=== PATIENT | female | born 1945 | race Two or more races ===

== ENCOUNTER 2018-10-30 16:00 | Emergency (ER) | payer MEDICARE, MEDICAID ==
[~2018-10-30] VITALS: Ht 147.3 cm; Wt 52.2 kg
[2018-10-30 16:00] VITALS: BP 161/82
--- NOTE | 2018-10-30 16:05 | NUR ---
ED Nurse Note: BROUGHT IN BY [id number] FROM HOME DUE TO PALPITATIONS, HEADACHE, AND FEELING ANXIOUS FOR PAST ONE HOUR. PT STATES THAT SHE RECENTLY GOT CARDIAC CHECK UP AND WAS TOLD THAT EVERYTHING WAS NORMAL EXCEPT TACHYCARDIA. DENIES SOB NOR CP AT THIS TIME. PT REPORTS TAKING BLOOD THINNER BUT DOES NOT REMEMBER THE NAME AND DOSE.
[2018-10-30] MEDS ORDERED: dilTIAZem HCl 25mg/5ml Inj IVP ONE ×2 (16:15→17:30)
--- NOTE | 2018-10-30 16:20 | NUR ---
ED Nurse Note: NOTIFIED ERMD THAT PT'S HR IS IN BTWEEN 150-170s IRREGULAR. RECEIVED ORDER FOR CARTIZEM 10MG/2ML, MEDS GIVEN PROTOCOL. PT'S HR IS NOW IN BETWEEN 90-110s. NO S/S OF DISTRESS.
[2018-10-30 16:27] LABS: BASOPHILS % (AUTO) 1.3 % (0.0-2.0); HEMATOCRIT 44.2 % (37.0-47.0); MEAN CORPUSCULAR VOLUME 94 FL (80-99); MONOCYTES % (AUTO) 5.6 % (1.0-10.0); PLATELET COUNT 280 K/UL (150-450); RED CELL DISTRIBUTION WIDTH 11.4 % (11.6-14.8); WHITE BLOOD COUNT 10.9 K/UL (4.8-10.8)
[2018-10-30 16:40] LABS: INR 0.9 (0.9-1.1)
[2018-10-30 16:45] LABS: ANION GAP 15 mmol/L (5-15); BLOOD UREA NITROGEN 17 mg/dL (7-18); CALCIUM 10.8 MG/DL (8.5-10.1); CARBON DIOXIDE 24 MMOL/L (21-32); CHLORIDE 98 MMOL/L (98-107); CREATININE 1.1 MG/DL (0.55-1.30); POTASSIUM 3.3 MMOL/L (3.5-5.1); SODIUM 137 MMOL/L (136-145)
[2018-10-30 16:48] LABS: APPEARANCE,URINE CLEAR; BILIRUBIN, URINE NEGATIVE (NEGATIVE); COLOR,URINE PALE YELLOW; GLUCOSE, URINE (UA) NEGATIVE (NEGATIVE); KETONES,URINE 2+ (NEGATIVE); LEUKOCYTE ESTERASE ,URINE 2+ (NEGATIVE); NITRITE,URINE NEGATIVE (NEGATIVE); PH,URINE 8 (4.5-8.0); PROTEIN,URINE 2+ (NEGATIVE); UROBILINOGEN,URINE NORMAL MG/DL (0.0-1.0)
[2018-10-30 16:59] LABS: ALANINE AMINOTRANSFERASE 21 U/L (12-78); ALBUMIN 4.3 G/DL (3.4-5.0); ALKALINE PHOSPHATASE 140 U/L (46-116); ASPARTATE AMINO TRANSFERASE 28 U/L (15-37); BILIRUBIN,TOTAL 0.4 MG/DL (0.2-1.0); CKMB 2.1 NG/ML (0.0-3.6); CREATINE KINASE 87 U/L (26-308)
[2018-10-30] MEDS ORDERED: ASPIR 8181 MG ORAL (17:14)
[2018-10-30] MEDS ORDERED: METOPROLOL TART25 MG ORAL (17:14)
[2018-10-30] MEDS ORDERED: ELIQUIS2.5 MG PO (17:14)
[2018-10-30] MEDS ORDERED: OMEPRAZOLE10 M1 ORAL (17:14)
[2018-10-30] MEDS ORDERED: LIPITOR80 MG ORAL (17:14)
--- NOTE | 2018-10-30 17:18 | Diagnostic Imaging Report ---
Indication: Chest pain Technique: One view of the chest Comparison: 06/28/2011 Findings: Patient rotated slightly to the right. Lungs and pleural spaces are clear. The heart size is upper limits normal. No significant interim change Impression: No acute process
[2018-10-30 17:41] VITALS: BP 119/81
[2018-10-30] MEDS ORDERED: ATORVASTATIN CA10 MG ORAL (18:05)
--- NOTE | 2018-10-30 19:01 | NUR ---
HAND-OFF: Report given to LOLA Fernandez. No signs of distress.
--- NOTE | 2018-10-30 19:02 | NUR ---
ED Nurse Note: Patient resting in bed with urine basin adjacent to her full of urine. Patient has no complaints at this time vital signs are stable.
[2018-10-30 19:03] VITALS: BP 110/63
--- NOTE | 2018-10-30 19:25 | Emergency Room Report ---
History of Present Illness General Chief Complaint: Palpitations Source: Patient, EMS Present Illness HPI This patient states that around 3:30 today she felt a sudden rapid heart rate. She states she also felt a pounding in her head. She states she became anxious. She thought maybe she was having a panic attack. She denies recent illness. She denies fever or chills. She denies nausea or vomiting. She states she does have a history of tachycardia. She denies arrhythmia. She is on metoprolol. She states she has been under a lot of stress. Her mother in [place] and she was planning on going for the . She states she is feeling a little better now but still feels a pounding sensation in her chest. She denies chest pain. She denies abdominal pain. She has no other complaints. Allergies: Coded Allergies: No Known Allergies (Unverified , 10/30/18) Patient History Past Medical History: see triage record, HTN, other - HLP, Tachycardia Social History: Denies: smoking, alcohol use, drug use Reviewed Nursing Documentation: PMH: Agreed; PSxH: Agreed Nursing Documentation-PMH Past Medical History: No History, Except For Hx Hypertension: Yes History Of Psychiatric Problem: Yes - Depression Review of Systems All Other Systems: negative except mentioned in HPI Physical Exam Vital Signs Date Time Temp Pulse Resp B/P (MAP) Pulse Ox O2 Delivery O2 Flow Rate FiO2 10/30/18 16:00 165 15 161/82 94 Room Air Sp02 EP Interpretation: reviewed, normal General Appearance: no apparent distress, alert, GCS 15, non-toxic Head: normocephalic, atraumatic Eyes: bilateral eye normal inspection, bilateral eye PERRL ENT: hearing grossly normal, normal pharynx, no angioedema, normal voice Neck: full range of motion, supple/symm/no masses Respiratory: chest non-tender, lungs clear, normal breath sounds, no respiratory distress, no retraction, no accessory muscle use, speaking full sentences Cardiovascular #1: no edema, tachycardia, irregularly irregular Gastrointestinal: normal bowel sounds, non tender, soft, non-distended, no guarding, no rebound Rectal: deferred Musculoskeletal: back normal, gait/station normal, normal range of motion, non- tender Neurologic: alert, oriented x3, responsive, motor strength/tone normal, sensory intact, speech normal Psychiatric: judgement/insight normal, memory normal, mood/affect normal, no suicidal/homicidal ideation Skin: normal color, no rash, warm/dry, well hydrated Medical Decision Making Diagnostic Impression: Primary Impression: Atrial fibrillation with RVR Additional Impression: Hypokalemia Laboratory Tests Test 10/30/18 16:00 10/30/18 16:30 White Blood Count 10.9 K/UL (4.8-10.8) H Red Blood Count 4.70 M/UL (4.20-5.40) Hemoglobin 15.0 G/DL (12.0-16.0) Hematocrit 44.2 % (37.0-47.0) Mean Corpuscular Volume 94 FL (80-99) Mean Corpuscular Hemoglobin 32.0 PG (27.0-31.0) H Mean Corpuscular Hemoglobin Concent 34.0 G/DL (32.0-36.0) Red Cell Distribution Width 11.4 % (11.6-14.8) L Platelet Count 280 K/UL (150-450) Mean Platelet Volume 6.2 FL (6.5-10.1) L Neutrophils (%) (Auto) 62.0 % (45.0-75.0) Lymphocytes (%) (Auto) 26.0 % (20.0-45.0) Monocytes (%) (Auto) 5.6 % (1.0-10.0) Eosinophils (%) (Auto) 5.0 % (0.0-3.0) H Basophils (%) (Auto) 1.3 % (0.0-2.0) Prothrombin Time 10.0 SEC (9.30-11.50) Prothrombin Time INR 0.9 (0.9-1.1) PTT 27 SEC (23-33) Sodium Level 137 MMOL/L (136-145) Potassium Level 3.3 MMOL/L (3.5-5.1) L Chloride Level 98 MMOL/L (98-107) Carbon Dioxide Level 24 MMOL/L (21-32) Anion Gap 15 mmol/L (5-15) Blood Urea Nitrogen 17 mg/dL (7-18) Creatinine 1.1 MG/DL (0.55-1.30) Estimate Glomerular Filtration Rate mL/min (>60) Glucose Level 158 MG/DL (74-106) H Calcium Level 10.8 MG/DL (8.5-10.1) H Total Bilirubin 0.4 MG/DL (0.2-1.0) Aspartate Amino Transferase (AST) 28 U/L (15-37) Alanine Aminotransferase (ALT) 21 U/L (12-78) Alkaline Phosphatase 140 U/L (46-116) H Total Creatine Kinase 87 U/L (26-308) Creatine Kinase MB 2.1 NG/ML (0.0-3.6) Creatine Kinase MB Relative Index 2.4 Troponin I 0.041 ng/mL (0.000-0.056) Total Protein 8.6 G/DL (6.4-8.2) H Albumin 4.3 G/DL (3.4-5.0) Globulin 4.3 g/dL Albumin/Globulin Ratio 1.0 (1.0-2.7) Thyroid Stimulating Hormone (TSH) 2.386 uiU/mL (0.358-3.740) Free Thyroxine 1.48 NG/DL (0.76-1.46) H Urine Color Pale yellow Urine Appearance Clear Urine pH 8 (4.5-8.0) Urine Specific [place] 1.010 (1.005-1.035) Urine Protein 2+ (NEGATIVE) H Urine Glucose (UA) Negative (NEGATIVE) Urine Ketones 2+ (NEGATIVE) H Urine Blood Negative (NEGATIVE) Urine Nitrite Negative (NEGATIVE) Urine Bilirubin Negative (NEGATIVE) Urine Urobilinogen Normal MG/DL (0.0-1.0) Urine Leukocyte Esterase 2+ (NEGATIVE) H Urine RBC 0-2 /HPF (0 - 2) Urine WBC 0-2 /HPF (0 - 2) Urine Squamous Epithelial Cells Occasional /LPF Urine Bacteria Few /HPF (NONE) EKG Diagnostic Results Rate: tachycardiac Rhythm: other - A.fib ST Segments: other - ST segment depressions in V4,V5,V6 Rhythm Strip Diag. Results EP Interpretation: yes Rate: variable Rhythm: other - A.fib Other Impression initially 160's. decreased during ED course. 110's at the time of transfer. Chest X-Ray Diagnostic Results Chest X-Ray Diagnostic Results : Chest X-Ray Ordered: Yes # of Views/Limited/Complete: 1 View Indication: Other EP Interpretation: Yes Interpretation: no consolidation, no effusion, no pneumothorax, no acute cardiopulmonary disease Impression: No acute disease Electronically Signed by: Kathy Schaefer DO Last Vital Signs Date Time Temp Pulse Resp B/P (MAP) Pulse Ox O2 Delivery O2 Flow Rate FiO2 10/30/18 17:41 130 14 119/81 99 Room Air Disposition: XFER SHT-TRM HOSP Condition: Stable Referrals: [facility],REFERRING (PCP) Kathy Schaefer DO Oct 30, 2018 19:25
--- NOTE | 2018-10-30 20:00 | NUR ---
ED Nurse Note: Patient provided with warm blanket after expressing that she was cold.
[2018-10-30 20:48] VITALS: BP 110/62
--- NOTE | 2018-10-30 21:14 | NUR ---
ED Nurse Note: Called and spoke with Amy DAVILA to give report for patient at [facility]. Patient is waiting comfortably, no s/s of acute distress. Vital signs stable.
--- NOTE | 2018-10-30 22:46 | NUR ---
ED Nurse Note: Patient is currently being picked up by ALS accompanied by 2 techs and a nurse. Patient is A&Ox4, ambulatory with slightly unsteady gait. REport given to aLS nurse. patient vital signs stable still sinus rhythm.
[2018-10-30 22:48] VITALS: BP 110/62
--- NOTE | 2018-11-02 15:26 | Cardiology Report ---
APPROVED REPORT EKG Measurement Heart [id number] Sinus bradycardia Nonspecific T wave abnormality Abnormal ECG
== END 2018-10-30 22:53 | disposition short-term general hospital (02) ==
LOC: EDBD 16:00 → EMR 17:00
DX: I48.2 Chronic atrial fibrillation (principal); E87.6 Hypokalemia; I10 Essential (primary) hypertension; F32.9 Major depressive disorder, single episode, unspecified; E78.5 Hyperlipidemia, unspecified
CPT/HCPCS: 36415; 71045; 80053; 81003; 82550; 82553; 84439; 84443; 84484; 85025; 85610; 85730; 93005; 96361; 96374; 96376; 99284; J7040; J8499